=== PATIENT | male | born 1945 | race Caucasian/White ===

== ENCOUNTER 2016-08-18 09:21 | Day surgery (SDC) | payer MEDICARE, OTHER ==
[~2016-08-18] VITALS: Ht 180.3 cm; Wt 81.8 kg
[~2016-08-18 09:21] MED LIST: ASPI-621 PO; CLOP75TA22 PO; IRBE150T49 PO; METO50TA4 PO; NIAC500T4 PO; SILD50TA PO; SIMV80TA3 PO; TICA90TA PO
[2016-08-18 09:48] VITALS: BP 127/91
[2016-08-18] MEDS ORDERED: APIX5TAB PO (10:06)
[2016-08-18] MEDS ORDERED: ATOR40TA78 PO (10:06)
[2016-08-18 10:27] LABS: ASPARTATE AMINO TRANSFERASE 24 U/L (15-37); BLOOD UREA NITROGEN 20 mg/dL (7-18)
[2016-08-18] MEDS ORDERED: PROPOFOL 10 MG/ML, 20ML ONE (10:29)
== END 2016-08-18 12:45 | disposition home or self-care (01) ==
LOC: CACL 09:21
PROVIDERS: ATTEND Internal Medicine Cardiovascular Disease
DX: I48.91 Unspecified atrial fibrillation (principal); I10 Essential (primary) hypertension; E78.5 Hyperlipidemia, unspecified; Z82.49 Family history of ischemic heart disease and other diseases of the circulatory system; Z79.82 Long term (current) use of aspirin; Z87.891 Personal history of nicotine dependence; Z72.89 Other problems related to lifestyle
CPT/HCPCS: 36415; 80053; 85025; 92960; 93005; J2704

== ENCOUNTER → 2016-09-26 | Outpatient (CLI) | payer MEDICARE, OTHER ==
[~2016-09-26] MED LIST changes: +APIX5TAB PO; +ATOR40TA78 PO; +REGADENOSON 0.4 MG/5 ML SYRINGE ONE
== END | disposition home or self-care (01) ==
LOC: CFH 07:32
PROVIDERS: ATTEND Internal Medicine Cardiovascular Disease
DX: Z01.818 Encounter for other preprocedural examination (principal); I48.0 Paroxysmal atrial fibrillation; I25.10 Atherosclerotic heart disease of native coronary artery without angina pectoris
CPT/HCPCS: 78452; 93017; A9502; J2785

== ENCOUNTER 2016-11-24 06:09 | Observation (INO) | payer MEDICARE, OTHER ==
[2016-11-21 09:52] VITALS: BP 154/85
[2016-11-21 10:36] LABS: HEMATOCRIT 43.6 % (39.2-51.8); HEMOGLOBIN 14.4 g/dL (13.7-18.0); WHITE BLOOD COUNT 5.6 x10^3/uL (3.4-10)
[2016-11-21 10:37] LABS: BLOOD UREA NITROGEN 18 mg/dL (7-18)
[2016-11-21 10:41] LABS: ASPARTATE AMINO TRANSFERASE 20 U/L (15-37)
[~2016-11-24] VITALS: Ht 180.3 cm; Wt 81.1 kg
[~2016-11-24 06:09] MED LIST changes: +AMIO200T42 PO; -CLOP75TA22 PO; +CLOP75TA52 PO; -REGADENOSON 0.4 MG/5 ML SYRINGE ONE
[2016-11-24] MEDS ORDERED: SODIUM CHLORIDE 0.9% 1,000 ML IV SCH (06:17)
[2016-11-24] MEDS ORDERED: MIDAZOLAM 1 MG/ML, 5ML ONE ×2 (07:44→08:12)
[2016-11-24] MEDS ORDERED: FENTANYL PF 100 MCG/2ML ONE (07:44)
[2016-11-24] MEDS ORDERED: ISOPROTERENOL 0.2MG/ML, 5ML ONE (07:51)
[2016-11-24] MEDS ORDERED: PROTAMINE SULFATE 10 MG/ML, 5ML ONE ×2 (07:51→08:12)
[2016-11-24] MEDS ORDERED: LIDOCAINE 2%, 20ML ONE (07:51)
[2016-11-24] MEDS ORDERED: SUCCINYLCHOLINE 20 MG/ML, 10ML ONE (08:12)
[2016-11-24] MEDS ORDERED: ROCURONIUM 10 MG/ML ONE (08:12)
[2016-11-24] MEDS ORDERED: ONDANSETRON 2MG/ML, 2ML ONE (08:12)
[2016-11-24] MEDS ORDERED: EPHEDRINE 50 MG/ML, 1ML ONE (08:12)
[2016-11-24] MEDS ORDERED: DEXAMETHASONE 4 MG/ML, 5ML ONE (08:12)
[2016-11-24] MEDS ORDERED: PROPOFOL 10 MG/ML, 20ML ONE (08:12)
[2016-11-24] MEDS ORDERED: HEPARIN 1,000 UNITS/ML, 10ML ONE ×2 (08:13→08:48)
[2016-11-24] MEDS ORDERED: ZOLPIDEM 5MG TABLET PO PRN (10:00)
[2016-11-24] MEDS ORDERED: SILDENAFIL PO PRN (10:00)
[2016-11-24] MEDS ORDERED: ACETAMINOPHEN 325 MG TABLET PO PRN ×2 (10:00→10:30)
[2016-11-24] MEDS ORDERED: ONDANSETRON 2MG/ML, 2ML IVPush PRN (10:30)
[2016-11-24] MEDS ORDERED: ALBUTEROL SULFATE 2.5 MG/3 ML NPPB PRN (10:30)
[2016-11-24] MEDS ORDERED: MEPERIDINE/PF 25MG/0.5ML IVPush PRN (10:30)
[2016-11-24] MEDS ORDERED: LABETALOL 5MG/ML, 20ML IV PRN (10:30)
[2016-11-24] MEDS ORDERED: hydrALAzine 20 MG/ML, 1ML IV PRN (10:30)
[2016-11-24] MEDS ORDERED: MIDAZOLAM 1 MG/ML, 2ML IV PRN (10:30)
[2016-11-24] MEDS ORDERED: HYDROmorphone 1 MG/ML, 1ML IV PRN (10:30)
[2016-11-24] MEDS ORDERED: FENTANYL PF 100 MCG/2ML IV PRN (10:30)
[2016-11-24] MEDS ORDERED: OXYcodone 5 MG/5 ML ORAL.SOL UDC PO PRN (10:30)
[2016-11-24] MEDS ORDERED: PROMETHAZINE 25 MG/ML, 1ML IV PRN (10:30)
[2016-11-24] MEDS: APIXABAN 5 MG TABLET PO SCH ×2 (11:05→20:54)
[2016-11-24 11:35] VITALS: BP 107/68
[2016-11-24 13:14] VITALS: BP 142/74
[2016-11-24 20:00] VITALS: BP 117/62
[2016-11-24] MEDS ORDERED: ATORVASTATIN 40 MG TABLET PO SCH (21:00)
[2016-11-25 01:12] VITALS: BP 119/63
[2016-11-25 07:31] VITALS: BP 119/69
[2016-11-25] MEDS: APIXABAN 5 MG TABLET PO SCH (08:48)
[2016-11-25] MEDS ORDERED: IRBESARTAN 150 MG TABLET PO SCH (09:00)
[2016-11-25] MEDS ORDERED: ASPIRIN 81 MG TABLET EC PO SCH (09:00)
[2016-11-25] MEDS ORDERED: ACET325T14 PO (09:04)
== END 2016-11-25 10:46 | disposition home or self-care (01) ==
LOC: CACL 06:09 → EDSTATUS 08:00 → ORIP 09:46 → 5SO 11:17 → DCLOUNGE 11-25 10:36
PROVIDERS: ADMIT Internal Medicine Cardiovascular Disease; ATTEND Internal Medicine Cardiovascular Disease
DX: I48.0 Paroxysmal atrial fibrillation (principal); I48.92 Unspecified atrial flutter; I25.10 Atherosclerotic heart disease of native coronary artery without angina pectoris; I10 Essential (primary) hypertension
CPT/HCPCS: 36415; 71020; 80053; 85025; 85347; 85610; 85730; 93005; 93306; 93613; 93655; 93656; 93662; C1730; C1731; C1732; C1759; C1766; C1893; C1894; G0378; J0330; J1100; J1644; J2250; J2405; J2704; J2720; J3010; J3490

== ENCOUNTER → 2020-11-08 | Outpatient (CLI) | payer MEDICARE, OTHER ==
[~2020-11-08] MED LIST changes: +ACET325T14 PO; -ASPI-621 PO; +ASPI81TA45 PO; +NIAC-17 PO; -NIAC500T4 PO; +OMNIPAQUE 350 MG/ML, 100ML BOTTLE ONE; +SIMV80TA18 PO; -SIMV80TA3 PO
== END | disposition home or self-care (01) ==
LOC: CFH 10:15
PROVIDERS: ATTEND Internal Medicine Cardiovascular Disease
DX: J43.2 Centrilobular emphysema (principal); I27.20 Pulmonary hypertension, unspecified; R91.8 Other nonspecific abnormal finding of lung field; J98.4 Other disorders of lung
CPT/HCPCS: 71275; Q9967